=== PATIENT | female | born 1970 | race American Indian/Alaskan Native ===

== ENCOUNTER 2017-04-12 18:47 | Emergency (ER) | payer OTHER ==
[2017-04-12 21:38] LABS: Basophils % (Auto) 0.5 % (0.0-1.8); Eosinophils % (Auto) 1.5 % (0.0-4.3); Hematocrit 27.8 % (30.3-42.9); Hemoglobin 9.1 gm/dl (10.1-14.3); Mean Corpuscular HGB Conc 33 % (30-34); Mean Corpuscular Hemoglobin 28 pg (28-32); Mean Corpuscular Volume 84 fl (79-97); Platelet Count 342 K/mm3 (140-440); Red Blood Count 3.31 M/mm3 (3.65-5.03); Red Cell Distribution Width 16.8 % (13.2-15.2); White Blood Count 6.6 K/mm3 (4.5-11.0)
[2017-04-12 21:50] LABS: INR 1.05 (0.87-1.13)
[2017-04-12 21:51] LABS: Partial Thromboplastin Time 33.7 Sec. (24.2-36.6)
[2017-04-12 21:57] LABS: Blood Urea Nitrogen 10 mg/dL (7-17); Calcium 8.2 mg/dL (8.4-10.2); Carbon Dioxide 24 mmol/L (22-30); Glucose 82 mg/dL (65-100)
[2017-04-12 21:58] LABS: Anion Gap 17 mmol/L; Potassium 3.9 mmol/L (3.6-5.0); Sodium 139 mmol/L (137-145)
[2017-04-12 22:36] LABS: Bilirubin,Urine NEG (Negative); Blood,Urine LG (Negative); Ketones,Urine NEG (Negative); Leukocyte Esterase,Urine NEG (Negative); Mucus,Urine FEW /HPF; Nitrite,Urine NEG (Negative); RBC,Urine > 182.0 /HPF (0.0-6.0); Urobilinogen,Urine < 2.0 mg/dL (<2.0); WBC,Urine < 1.0 /HPF (0.0-6.0)
--- NOTE | 2017-04-13 05:52 | Ultrasound Report ---
FINAL REPORT PROCEDURE: US TRANSVAGINAL TECHNIQUE: Real-time transvaginal sonography in multiple planes of the pelvis was performed with image documentation. This examination was performed without Doppler. Vascular abnormalities, including ovarian torsion, will not be detectable without Doppler evaluation. CPT 20809 HISTORY: menorrhagia COMPARISON: No prior studies are available for comparison. FINDINGS: UTERUS Size: 10.8 x 7.6 x 8 cm. Endometrial thickness: 6.1 mm. Orientation: anteverted. Cervix: Normal. Fibroids/masses: There is an intramural mass in the anterior body and fundus of the uterus measuring 6.3 x 3.9 x 5.7 centimeters suggesting a fibroid.. RIGHT Ovary: Not identified. LEFT Ovary: 1.9 x 1.3 x 1.9 cm. Appearance: There is a 1.1 centimeters cyst.. Pelvic fluid: None. Other: None. IMPRESSION: Anterior uterine fibroid..
--- NOTE | 2017-04-13 06:38 | Emergency Department Report ---
ED General Adult HPI - General Chief complaint: Vaginal Bleeding Stated complaint: HEADACHE NASAL CONGESTION/BLEEDING W/CLOTS Time Seen by Provider: 04/13/17 06:32 Source: patient Mode of arrival: Ambulatory Limitations: No Limitations - History of Present Illness Initial comments: The patient states that she has chronic and intermittent heavy vaginal bleeding. She has been previously told that she has fibroids. She does not have a inventory specialist. She does not have any other specific complaints at this time. She denies previous transfusion of blood. She states that she's been taking B-12 for this but not iron. -: year(s) Severity scale (0 -10): 0 Worsens with: none Associated Symptoms: denies other symptoms - Related Data Home Medications Medication Instructions Recorded Confirmed Last Taken valACYclovir [Valtrex] 500 mg PO PRN 04/13/17 04/13/17 07/22/16 Previous Rx's Medication Instructions Recorded Last Taken Type Ferrous Gluconate [Fergon 325 MG 325 mg PO TID #20 tablet 04/13/17 Unknown Rx tab] Allergies Allergy/AdvReac Type Severity Reaction Status Date / Time ibuprofen Allergy Unknown Verified 04/13/17 03:24 milk Allergy Unknown Verified 04/13/17 03:24 ED Review of Systems ROS: Stated complaint: HEADACHE NASAL CONGESTION/BLEEDING W/CLOTS Other details as noted in HPI Constitutional: denies: chills, fever Eyes: denies: eye pain, eye discharge, vision change ENT: denies: ear pain, throat pain Respiratory: denies: cough, shortness of breath, wheezing Cardiovascular: denies: chest pain, palpitations Endocrine: no symptoms reported Gastrointestinal: denies: abdominal pain, nausea, diarrhea Genitourinary: denies: urgency, dysuria, discharge Musculoskeletal: denies: back pain, joint swelling, arthralgia Skin: denies: rash, lesions Neurological: denies: headache, weakness, paresthesias Psychiatric: denies: anxiety, depression Hematological/Lymphatic: denies: easy bleeding, easy bruising ED Past Medical Hx - Past Medical History Additional medical history: fibroids,anemia - Surgical History Hx Cholecystectomy: Yes - Social History Smoking Status: Never Smoker Substance Use Type: None - Medications Home Medications: Home Medications Medication Instructions Recorded Confirmed Last Taken Type Ferrous Gluconate [Fergon 325 MG 325 mg PO TID #20 tablet 08/23/17 Unknown Rx tab] valACYclovir [Valtrex] 500 mg PO PRN 04/13/17 04/13/17 07/22/16 History ED Physical Exam - General Limitations: No Limitations General appearance: alert, in no apparent distress - Head Head exam: Present: atraumatic, normocephalic - Eye Eye exam: Present: normal appearance, PERRL, EOMI. Absent: scleral icterus - ENT ENT exam: Present: mucous membranes moist - Neck Neck exam: Present: normal inspection - Respiratory Respiratory exam: Present: normal lung sounds bilaterally. Absent: respiratory distress - Cardiovascular Cardiovascular Exam: Present: regular rate, normal rhythm. Absent: systolic murmur, diastolic murmur, rubs, gallop - GI/Abdominal GI/Abdominal exam: Present: soft, normal bowel sounds. Absent: distended, tenderness, guarding, rebound, rigid - Extremities Exam Extremities exam: Present: normal inspection - Back Exam Back exam: Present: normal inspection - Neurological Exam Neurological exam: Present: alert, oriented X3, CN II-XII intact. Absent: motor sensory deficit - Psychiatric Psychiatric exam: Present: normal affect, normal mood - Skin Skin exam: Present: warm, dry, intact, normal color. Absent: rash ED Course Vital Signs 04/12/17 04/13/17 19:50 03:24 Temperature 98.6 F Pulse Rate 81 82 Respiratory 18 20 Rate Blood Pressure 133/83 91/55 [Left] O2 Sat by Pulse 100 100 Oximetry ED Medical Decision Making - Lab Data Result diagrams: 04/12/17 21:00 04/12/17 21:00 Laboratory Results - last 24 hr 04/12/17 04/12/17 04/12/17 21:00 21:00 21:00 WBC 6.6 RBC 3.31 L Hgb 9.1 L Hct 27.8 L MCV 84 MCH 28 MCHC 33 RDW 16.8 H Plt Count 342 Lymph % (Auto) 38.3 H [place] % (Auto) 8.1 H Eos % (Auto) 1.5 Baso % (Auto) 0.5 Lymph # 2.5 [place] # 0.5 Eos # 0.1 Baso # 0.0 Seg Neutrophils % 51.6 Seg Neutrophils # 3.4 PT 14.2 INR 1.05 APTT 33.7 Sodium 139 Potassium 3.9 Chloride 102.0 Carbon Dioxide 24 Anion Gap 17 BUN 10 Creatinine 0.8 Estimated GFR > 60 BUN/Creatinine Ratio 12.50 Glucose 82 Calcium 8.2 L HCG, Quant Urine Color Urine Turbidity Urine pH Ur Specific [place] Urine Protein Urine Glucose (UA) Urine Ketones Urine Blood Urine Nitrite Urine Bilirubin Urine Urobilinogen Ur Leukocyte Esterase Urine WBC (Auto) Urine RBC (Auto) U Epithel Cells (Auto) Urine Mucus 04/12/17 04/12/17 21:00 22:00 WBC RBC Hgb Hct MCV MCH MCHC RDW Plt Count Lymph % (Auto) [place] % (Auto) Eos % (Auto) Baso % (Auto) Lymph # [place] # Eos # Baso # Seg Neutrophils % Seg Neutrophils # PT INR APTT Sodium Potassium Chloride Carbon Dioxide Anion Gap BUN Creatinine Estimated GFR BUN/Creatinine Ratio Glucose Calcium HCG, Quant < 2 Urine Color Yellow Urine Turbidity Clear Urine pH 6.0 Ur Specific [place] 1.024 Urine Protein 30 mg/dl Urine Glucose (UA) Neg Urine Ketones Neg Urine Blood Lg Urine Nitrite Neg Urine Bilirubin Neg Urine Urobilinogen < 2.0 Ur Leukocyte Esterase Neg Urine WBC (Auto) < 1.0 Urine RBC (Auto) > 182.0 U Epithel Cells (Auto) < 1.0 Urine Mucus Few Critical care attestation.: If time is entered above; I have spent that time in minutes in the direct care of this critically ill patient, excluding procedure time. ED Disposition Clinical Impression: Dysfunctional uterine bleeding Disposition: DC-01 TO HOME OR SELFCARE Is pt being admited?: No Does the pt Need Aspirin: No Condition: Stable Instructions: Dysfunctional Uterine Bleeding (ED) Additional Instructions: Further evaluation with a inventory specialist as recommended. See referral. Return any acute change or problem. Prescriptions: Ferrous Gluconate [Fergon 325 MG tab] 325 mg PO TID #20 tablet Referrals: PRIMARY CARE, [Primary Care Provider] - 3-5 Days Time of Disposition: 06:45
[2017-04-13 06:47] VITALS: BP 99/60
--- NOTE | 2017-04-13 07:21 | Ultrasound Report ---
FINAL REPORT PROCEDURE: US TRANSABDOMINAL TECHNIQUE: Real-time transabdominal sonography in multiple planes of the pelvis was performed with image documentation. This examination was performed without Doppler. Vascular abnormalities, including ovarian torsion, will not be detectable without Doppler evaluation. HISTORY: menorrhagia COMPARISON: No prior studies are available for comparison. FINDINGS: UTERUS Size: 10.8 x 7.6 x 8 cm. Endometrial thickness: 6.1 mm. Orientation: anteverted. Cervix: Normal. Fibroids/masses: There is an intramural mass in the anterior body and fundus of the uterus measuring 6.3 x 3.9 x 5.7 centimeters suggesting a fibroid.. RIGHT Ovary: Not identified. LEFT Ovary: 1.9 x 1.3 x 1.9 cm. Appearance: There is a 1.1 centimeters cyst.. Pelvic fluid: None. Other: None. IMPRESSION: Anterior uterine fibroid..
== END 2017-04-13 07:44 | disposition home or self-care (01) ==
LOC: ED 18:47
DX: N93.8 Other specified abnormal uterine and vaginal bleeding (principal)
CPT/HCPCS: 36415; 76830; 76856; 80048; 81001; 84702; 85025; 85610; 85730

== ENCOUNTER 2019-11-05 17:09 | Emergency (ER) | payer SELFPAY ==
[2019-11-05] MEDS ORDERED: ASPIRIN 325 MG TAB PO ONE (17:36)
[2019-11-05 18:08] LABS: Basophils % (Auto) 0.7 % (0.0-1.8); Eosinophils # (Auto) 0.1 K/mm3 (0.0-0.4); Eosinophils % (Auto) 1.4 % (0.0-4.3); Hematocrit 32.5 % (30.3-42.9); Hemoglobin 10.8 gm/dl (10.1-14.3); Lymphocytes # (Auto) 2.3 K/mm3 (1.2-5.4); Lymphocytes % (Auto) 42.5 % (13.4-35.0); Mean Corpuscular HGB Conc 33 % (30-34); Mean Corpuscular Volume 81 fl (79-97); Monocytes # (Auto) 0.5 K/mm3 (0.0-0.8); Monocytes % (Auto) 8.4 % (0.0-7.3); Platelet Count 384 K/mm3 (140-440); Red Cell Distribution Width 17.1 % (13.2-15.2)
[2019-11-05 18:29] LABS: BUN/Creatinine Ratio 11; Blood Urea Nitrogen 9 mg/dL (7-17); Hemolysis Index 8
--- NOTE | 2019-11-05 18:45 | Emergency Department Report ---
ED Chest Pain HPI - General Chief Complaint: Chest Pain Stated Complaint: CHEST PAIN Time Seen by Provider: 11/05/19 18:31 Source: patient Mode of arrival: Ambulatory Limitations: No Limitations - History of Present Illness Initial Comments: Patient is a 49-year-old F [place] female with no significant past medical history but does have a family history of late onset asthma as well as clotting disorders who is presenting with right-sided chest discomfort. Patient states that the pain started approximately 4 days ago. She states she has a minimal dry cough. Patient denies fevers chills recent travel. Patient states pain is worse with deep breathing. She denies any trauma or heavy lifting. Patient states she initially thought pain may have been secondary to gas and is started taking [id number] remedies however pain is not improving. - Related Data Home Medications Medication Instructions Recorded Confirmed Last Taken valACYclovir [Valtrex] 500 mg PO PRN 04/13/17 04/13/17 07/22/16 Previous Rx's Medication Instructions Recorded Last Taken Type Amoxicillin 500 mg PO TID #21 capsule 04/13/17 Unknown Rx Ferrous Gluconate [Fergon 325 MG 325 mg PO TID #20 tablet 04/13/17 Unknown Rx tab] Albuterol INH(or & Nicu Only) 2 puff IH QID PRN #1 inhalation 11/05/19 Unknown Rx [ProAir HFA Inhaler] Fluticasone [Flonase] 1 spray NS QDAY #1 bottle 11/05/19 Unknown Rx predniSONE [Deltasone] 20 mg PO QDAY #5 tab 11/05/19 Unknown Rx Allergies Allergy/AdvReac Type Severity Reaction Status Date / Time ibuprofen Allergy Unknown Verified 04/13/17 03:24 milk Allergy Unknown Verified 04/13/17 03:24 Heart Score - HEART Score History: Slightly suspicious EKG: Non-specific Age: 45-65 Risk factors: No known risk factors Troponin: < normal limit HEART Score: 2 ED Review of Systems ROS: Stated complaint: CHEST PAIN Other details as noted in HPI Comment: All other systems reviewed and negative ED Past Medical Hx - Past Medical History Previous Medical History?: No Additional medical history: fibroids,anemia - Surgical History Past Surgical History?: Yes Hx Cholecystectomy: Yes - Social History Smoking Status: Never Smoker Substance Use Type: None - Medications Home Medications: Home Medications Medication Instructions Recorded Confirmed Last Taken Type Amoxicillin 500 mg PO TID #21 capsule 04/13/17 Unknown Rx Ferrous Gluconate [Fergon 325 MG 325 mg PO TID #20 tablet 04/13/17 Unknown Rx tab] valACYclovir [Valtrex] 500 mg PO PRN 04/13/17 04/13/17 07/22/16 History Albuterol INH(or & Nicu Only) 2 puff IH QID PRN #1 inhalation 11/05/19 Unknown Rx [ProAir HFA Inhaler] Fluticasone [Flonase] 1 spray NS QDAY #1 bottle 11/05/19 Unknown Rx predniSONE [Deltasone] 20 mg PO QDAY #5 tab 11/05/19 Unknown Rx ED Physical Exam - General Limitations: No Limitations General appearance: alert, in no apparent distress - Head Head exam: Present: atraumatic, normocephalic - Eye Eye exam: Present: normal appearance - ENT ENT exam: Present: normal orophraynx, mucous membranes moist - Neck Neck exam: Present: normal inspection - Respiratory Respiratory exam: Present: normal lung sounds bilaterally. Absent: respiratory distress, wheezes, rales, rhonchi, chest wall tenderness - Cardiovascular Cardiovascular Exam: Present: regular rate, normal rhythm, normal heart sounds. Absent: systolic murmur, diastolic murmur, rubs, gallop - GI/Abdominal GI/Abdominal exam: Present: soft, normal bowel sounds. Absent: distended, tenderness, guarding, rebound - Extremities Exam Extremities exam: Present: normal inspection - Back Exam Back exam: Present: normal inspection - Neurological Exam Neurological exam: Present: alert, oriented X3 - Psychiatric Psychiatric exam: Present: normal affect, normal mood - Skin Skin exam: Present: warm, dry, intact, normal color. Absent: rash ED Course Vital Signs 11/05/19 11/05/19 11/05/19 17:14 17:36 19:03 Temperature 98.6 F Pulse Rate 87 Respiratory 20 20 Rate Blood Pressure 166/90 121/62 O2 Sat by Pulse 99 99 Oximetry 11/05/19 11/05/19 11/05/19 19:15 19:30 19:46 Temperature Pulse Rate Respiratory Rate Blood Pressure 129/55 121/62 112/65 O2 Sat by Pulse 99 99 99 Oximetry 11/05/19 11/05/19 20:00 20:15 Temperature Pulse Rate Respiratory Rate Blood Pressure 120/66 127/72 O2 Sat by Pulse 99 97 Oximetry ED Medical Decision Making - Lab Data Result diagrams: 11/05/19 17:50 11/05/19 17:50 Lab Results 11/05/19 11/05/19 11/05/19 Range/Units 17:50 17:50 18:42 WBC 5.5 (4.5-11.0) K/mm3 RBC 4.00 (3.65-5.03) M/mm3 Hgb 10.8 (10.1-14.3) gm/dl Hct 32.5 (30.3-42.9) % MCV 81 (79-97) fl MCH 27 L (28-32) pg MCHC 33 (30-34) % RDW 17.1 H (13.2-15.2) % Plt Count 384 (140-440) K/mm3 Lymph % (Auto) 42.5 H (13.4-35.0) % [place] % (Auto) 8.4 H (0.0-7.3) % Eos % (Auto) 1.4 (0.0-4.3) % Baso % (Auto) 0.7 (0.0-1.8) % Lymph # 2.3 (1.2-5.4) K/mm3 [place] # 0.5 (0.0-0.8) K/mm3 Eos # 0.1 (0.0-0.4) K/mm3 Baso # 0.0 (0.0-0.1) K/mm3 Seg Neutrophils % 47.0 (40.0-70.0) % Seg Neutrophils # 2.6 (1.8-7.7) K/mm3 D-Dimer 205.27 (0-234) ng/mlDDU Sodium 139 (137-145) mmol/L Potassium 3.7 (3.6-5.0) mmol/L Chloride 100.8 (98-107) mmol/L Carbon Dioxide 25 (22-30) mmol/L Anion Gap 17 mmol/L BUN 9 (7-17) mg/dL Creatinine 0.8 (0.7-1.2) mg/dL Estimated GFR > 60 ml/min BUN/Creatinine Ratio 11 % Glucose 96 (65-100) mg/dL Calcium 9.0 (8.4-10.2) mg/dL Troponin T < 0.010 (0.00-0.029) ng/mL HCG, Qual (Negative) 11/05/19 11/05/19 Range/Units 20:10 20:23 WBC (4.5-11.0) K/mm3 RBC (3.65-5.03) M/mm3 Hgb (10.1-14.3) gm/dl Hct (30.3-42.9) % MCV (79-97) fl MCH (28-32) pg MCHC (30-34) % RDW (13.2-15.2) % Plt Count (140-440) K/mm3 Lymph % (Auto) (13.4-35.0) % [place] % (Auto) (0.0-7.3) % Eos % (Auto) (0.0-4.3) % Baso % (Auto) (0.0-1.8) % Lymph # (1.2-5.4) K/mm3 [place] # (0.0-0.8) K/mm3 Eos # (0.0-0.4) K/mm3 Baso # (0.0-0.1) K/mm3 Seg Neutrophils % (40.0-70.0) % Seg Neutrophils # (1.8-7.7) K/mm3 D-Dimer (0-234) ng/mlDDU Sodium (137-145) mmol/L Potassium (3.6-5.0) mmol/L Chloride (98-107) mmol/L Carbon Dioxide (22-30) mmol/L Anion Gap mmol/L BUN (7-17) mg/dL Creatinine (0.7-1.2) mg/dL Estimated GFR ml/min BUN/Creatinine Ratio % Glucose (65-100) mg/dL Calcium (8.4-10.2) mg/dL Troponin T < 0.010 (0.00-0.029) ng/mL HCG, Qual Negative (Negative) - EKG Data -: EKG Interpreted by [place] EKG shows normal: sinus rhythm, axis, intervals, QRS complexes, ST-T waves Rate: normal - Radiology Data Radiology results: image reviewed (Chest x-ray is within normal limits) - Medical Decision Making Patient is a 49-year-old F [place] female who is presenting with very mild dry cough as well as right-sided pleuritic pain. Patient's d-dimer is within normal limits. Chest x-ray is negative for cardiomegaly or obvious infiltrate. EKG and troponin are within normal limits as well. Patient likely with a viral upper respiratory infection causing pleurisy. Patient was started on a short course of prednisone be discharged home. Critical care attestation.: If time is entered above; I have spent that time in minutes in the direct care of this critically ill patient, excluding procedure time. ED Disposition Clinical Impression: Pleurisy Upper respiratory infection Qualifiers: URI type: unspecified URI Qualified Code(s): J06.9 - Acute upper respiratory infection, unspecified Disposition: DC-01 TO HOME OR SELFCARE Is pt being admited?: No Does the pt Need Aspirin: No Condition: Stable Instructions: Pleurisy (ED), Upper Respiratory Infection (ED) Referrals: PRIMARY CARE, [Primary Care Provider] - 3-5 Days Time of Disposition: 21:50
--- NOTE | 2019-11-05 21:49 | XRay Report ---
CHEST 2 VIEWS INDICATION / CLINICAL INFORMATION: Chest Pain. COMPARISON: None available. FINDINGS: SUPPORT DEVICES: None. HEART / MEDIASTINUM: No significant abnormality. LUNGS / PLEURA: No significant pulmonary or pleural abnormality. No pneumothorax. ADDITIONAL FINDINGS: Previous cholecystectomy. IMPRESSION: No acute finding. Signer Name: Terry Garcia MD Signed: 11/05/2019 9:45 PM Workstation Name: [id number]
[2019-11-05 21:59] VITALS: BP 131/84
== END 2019-11-05 21:59 | disposition home or self-care (01) ==
LOC: ED 17:09
DX: R09.1 Pleurisy (principal); J06.9 Acute upper respiratory infection, unspecified; Z90.49 Acquired absence of other specified parts of digestive tract; Z86.2 Personal history of diseases of the blood and blood-forming organs and certain disorders involving the immune mechanism; Z79.899 Other long term (current) drug therapy; Z88.6 Allergy status to analgesic agent; Z91.011 Allergy to milk products
CPT/HCPCS: 36415; 71046; 80048; 84484; 84703; 85025; 85379; 93005; 93010

== ENCOUNTER 2022-01-05 11:02 | Emergency (ER) | payer BC ==
[2022-01-05 11:12] VITALS: BP 157/87
[2022-01-05] MEDS ORDERED: dexAMETHasone 4 MG/ML VIAL IM ONE (15:11)
--- NOTE | 2022-01-05 15:13 | Emergency Department Report ---
Minor Respiratory - HPI Chief Complaint: Dyspnea/Respdistress Stated Complaint: AMELIE/ASTHMA Time Seen by Provider: 01/05/22 15:10 Duration: 2 Days Pain Location: Nose Severity: mild Minor Respiratory: Yes Able to Tolerate Fluids, No Rhinorrhea, No Sore Throat, No Ear Pain, No Cough, No Sick Contacts, No Hemoptysis, No Chest Pain, No Shortness of Breath, No Fever Other History: Patient is a pleasant 51-year-old comes to the emergency room with a sensation of difficulty in breathing last night. She states she had sinus surgery about a year ago. She became alarmed when her nasal passages seemed occluded. She did call her ENT since being in the ER and they will see her. She denies any fever or chills. No cough. No chest pain. Patient is ambulatory, nontoxic [id number] with normal vital signs on exam. Of importance it is [place] in [place] where pollen levels are high. ED Review of Systems ROS: Stated complaint: AMELIE/ASTHMA Other details as noted in HPI Comment: All other systems reviewed and negative ED Past Medical Hx - Past Medical History Previous Medical History?: Yes Additional medical history: fibroids,anemia/ pleruisy - Surgical History Past Surgical History?: Yes Hx Cholecystectomy: Yes Additional Surgical History: Sinus surgery last year - Social History Smoking Status: Never Smoker Substance Use Type: None - Medications Home Medications: Home Medications Medication Instructions Recorded Confirmed Last Taken Type Amoxicillin 500 mg PO TID #21 capsule 04/13/17 Unknown Rx Ferrous Gluconate [Fergon 325 MG 325 mg PO TID #20 tablet 04/13/17 Unknown Rx tab] valACYclovir [Valtrex] 500 mg PO PRN 04/13/17 04/13/17 07/22/16 History Fluticasone [Flonase] 1 spray NS QDAY #1 bottle 11/05/19 Unknown Rx predniSONE [Deltasone] 20 mg PO QDAY #5 tab 11/05/19 Unknown Rx Albuterol Mdi (or & Nicu Only) 2 puff IH QID PRN #1 inhalation 03/06/20 Unknown Rx [ProAir HFA Inhaler] Minor Respiratory Exam - Exam General: Vital signs noted. No distress. Alert and acting appropriately. HEENT: Yes Moist Mucous Membranes, No Pharyngeal Erythema, No Pharyngeal Exudates, No Rhinorrhea, No Conjuctival Injection, No Frontal Tenderness, No Maxillary Tenderness Ear: Neither TM Bulge, Neither TM Erythema, Neither EAC Pain, Neither EAC Discharge Neck: Yes Supple, No Adenopathy Lungs: Yes Good Air Exchange, No Wheezes, No Ronchi, No Stridor, No Cough, No Labored Respirations, No Retractions, No Use of Accessory Muscles, No Other Abnormal Lung Sounds Heart: Yes Regular, No Murmur Abdomen: Yes Normal Bowel Sounds, No Tenderness, No Peritoneal Signs Skin: No Rash, No Edema Neurologic: Alert and oriented, no deficits. Musculoskeletal: Unremarkable. ED Course Vital Signs 01/05/22 11:09 Temperature 98.3 F Pulse Rate 89 Respiratory 16 Rate Blood Pressure 157/87 O2 Sat by Pulse 98 Oximetry ED Medical Decision Making - Radiology Data Radiology results: report reviewed, image reviewed nap - Medical Decision Making Vital Signs 01/05/22 11:09 Temperature 98.3 F Pulse Rate 89 Respiratory 16 Rate Blood Pressure 157/87 O2 Sat by Pulse 98 Oximetry Decadron 8 mg IM given. Patient being discharged home with discharge plan of care including diet, activity, medications and follow-up. She is already made an appointment with her ENT. She will continue [id number] Flonase. - Differential Diagnosis URI versus sinus polyp Critical care attestation.: If time is entered above; I have spent that time in minutes in the direct care of this critically ill patient, excluding procedure time. ED Disposition Clinical Impression: Sinus congestion Disposition: 01 HOME / SELF CARE / HOMELESS Is pt being admited?: No Does the pt Need Aspirin: No Condition: Stable Additional Instructions: You have been given Decadron 8 mg IM today. Continue to use your Flonase at home. Stay well-hydrated. Humidification to your room will help with the dryness and sensation of nasal congestion Follow-up with your ENT as you have scheduled. Your chest x-ray today was normal Referrals: FELIBERTO OCHOA MD [Staff Physician] - 3-5 Days Time of Disposition: 15:13
--- NOTE | 2022-01-05 15:59 | XRay Report ---
CHEST 2 VIEWS INDICATION / CLINICAL INFORMATION: sob. COMPARISON: 03/06/2020 FINDINGS: SUPPORT DEVICES: None. HEART / MEDIASTINUM: No significant abnormality. LUNGS / PLEURA: No significant pulmonary or pleural abnormality. No pneumothorax. ADDITIONAL FINDINGS: No significant additional findings. IMPRESSION: 1. No acute findings. Signer Name: Haseeb De La Paz MD Signed: 01/05/2022 3:52 PM Workstation Name: [id number]
--- NOTE | 2022-01-06 11:31 | Electrocardiograph Report ---
[facility] Test Date: 2022-01-05 Test Time: 11:15:54 Pat Name: KATHYA CUI Department: Room: Gender: F Retail Delivery Driver: ANGELINE : 1970 Requested By: FELIPE DANGELO Order Number: [id number] Reading MD: Noé Bartlett Measurements Intervals [place] Rate: 80 P: 52 TX: 157 QRS: 62 QRSD: 73 T: 19 QT: 385 QTc: 445 Interpretive Statements Sinus rhythm No previous ECG available for comparison Electronically Signed On 01-06-2022 11:30:36 EDT by Noé Bartlett
== END 2022-01-05 16:30 | disposition home or self-care (01) ==
LOC: ED 11:02
DX: R09.81 Nasal congestion (principal); R06.00 Dyspnea, unspecified; Z90.49 Acquired absence of other specified parts of digestive tract; Z88.6 Allergy status to analgesic agent; Z91.011 Allergy to milk products; Z79.899 Other long term (current) drug therapy
CPT/HCPCS: 71046; 93005; 96372; 99283; J1100